=== PATIENT | female | born 1990 | race African-American/Black ===

== ENCOUNTER 2022-07-08 14:32 | Inpatient (IN) | payer BC ==
[2022-07-08 15:12] VITALS: BMI 28.3
[2022-07-08 15:26] LABS: Fetal Membranes Rupture No Membranes Rupture (No Rupture)
[2022-07-08] MEDS ORDERED: hydrALAZINE 20 MG/ML VIAL SLOW IVP PRN (15:55)
[2022-07-08] MEDS ORDERED: Ondansetron PF 4 MG/2 ML Vial IVP PRN (15:55)
[2022-07-08] MEDS ORDERED: Acetaminophen 500 MG TAB PO PRN (15:55)
[2022-07-08] MEDS ORDERED: Promethazine HCl 25 MG/ML VIAL IM PRN (15:55)
[2022-07-08] MEDS ORDERED: NS w/ Oxytocin 30 units 500 ML IV SCH (16:00)
[2022-07-08 16:09] LABS: Bilirubin Neg (Negative); Blood, Urine Negative (Negative); Clarity Clear (Clear); Glucose, Urine (Dipstick) Normal (Negative); Ketone, Urine Negative (Negative); Leukocyte Negative (Negative); Nitrite Negative (Negative); Protein, Urine (Dipstick) Negative (Neg-Trace); Specific Gravity, Urine 1.015 (1.005-1.030); Urobilinogen Normal mg/dL (Less than 2)
[2022-07-08 16:16] LABS: Amphetamine Not Detected (NotDetected); Barbiturates Screen Not Detected (NotDetected); Benzodiazepine Screen Not Detected (NotDetected); Cocaine Metabolite Screen Not Detected (NotDetected); Methadone Not Detected (NotDetected); Methamphetamine Not Detected (NotDetected); Opiate Screen Not Detected (NotDetected); Oxycodone Screen Not Detected (NotDetected); Phencyclidine (PCP) Not Detected (NotDetected); THC/Cannabinoid Screen Not Detected (NotDetected); Tricyclic Screen Not Detected (NotDetected)
[2022-07-08 16:17] LABS: Bacteria/HPF None Seen HPF (None Seen); CAUTI Indications for Culture Pregnancy; RBC/HPF None Seen HPF (0-3); WBC/HPF 0-3 HPF (0-3)
[2022-07-08 16:18] LABS: Urine Culture Reflex Yes Yes
[2022-07-08 16:27] LABS: Hemoglobin 10.5 g/dL (12.0-15.5); Mean Corpuscular Hemoglobin 24.5 pg (27.0-33.0); RBC Distribution Width 15.7 % (11.5-14.5); Red Blood Cell (RBC) Count 4.29 10x6/uL (3.90-5.03); White Blood Cell (WBC) Count 6.7 10x3/uL (3.5-10.5)
[2022-07-08 16:31] LABS: ALT (SGPT) 6 U/L (8-55); AST (SGOT) 14 U/L (5-34); Albumin 3.4 g/dL (3.5-5.0); Alkaline Phosphatase 96 U/L (40-110); Anion Gap 15 mmol/L (10-20); BUN (Urea Nitrogen) 13 mg/dL (7.0-18.7); Bilirubin, Total 0.2 mg/dL (0.2-1.2); Calc. Creatinine Clearance 96 mL/min (70-130); Calcium 8.8 mg/dL (7.8-10.44); Carbon Dioxide 21 mmol/L (22-29); Chloride 106 mmol/L (98-107); Estimated GFR 90; Glucose 90 mg/dL (70-105); Potassium 4.6 mmol/L (3.5-5.1); Protein, Total 6.4 g/dL (6.0-8.3); Sodium 137 mmol/L (136-145)
[2022-07-08 16:49] LABS: Syphilis Antibody Nonreactive (Nonreactive); Syphilis Antibody Index 0.05 S/CO (<1.00 Non-Reactive)
[2022-07-08 16:52] LABS: HBSAg Index 0.17 S/CO (0-0.99); HIV (1/2) Antibody/Antigen Non-Reactive (NonReactive); HIV 1/2 INDEX 0.11 S/CO (<1.00); Hep B Surf Ag Non-Reactive S/CO (NonReactive)
[2022-07-08 17:03] LABS: MDiff Complete? YES; Manual Diff?? YES; Platelet Count 195 10x3/uL (130-400)
[2022-07-08 17:06] LABS: Band 1 % (5-11); Eosinophils 1 % (0-10); Lymphocytes 25 % (21-51); Monocytes 7 % (0-10); Neutrophil 66 % (42-75)
[2022-07-08 17:07] LABS: Platelet Morphology Comment Appears Adequate
[2022-07-08 17:08] LABS: Anisocytosis SLIGHT = 6-15 cells (100X) (0-5/hpf); Elliptocytes SLIGHT = 2-5 cells (100X) (0-1/hpf); Hypochromia SLIGHT = 6-15 cells (100X) (0-5/hpf); Macrocytosis SLIGHT = 6-15 cells (100X) (0-5/hpf); Microcytosis SLIGHT = 6-15 cells (100X) (0-5/hpf); Polychromasia SLIGHT = 2-3 cells (100X) (0-2/hpf); Schistocytes SLIGHT = 2-5 cells (100X) (0-1/hpf); Tear Drops SLIGHT = 2-5 cells (100X) (0-1/hpf)
[2022-07-08] MEDS ORDERED: Famotidine/PF 20 mg/2ml Vial SLOW IVP PRN (17:49)
[2022-07-08] MEDS ORDERED: Bicitra 30 ML UDCUP PO PRN (17:49)
[2022-07-08] MEDS ORDERED: Azithromycin 500 MG in Sodium Chloride 0.9% 250 ML 250 ML IVPB SCH (18:00)
[2022-07-08] MEDS ORDERED: CEFAZOLIN 2 GM in Sodium Chloride 0.9% 100 ML IVPB SCH (18:00)
[2022-07-08 19:21] LABS: HBSAg Index 0.15 S/CO (0-0.99); Hep B Surf Ag Non-Reactive S/CO (NonReactive)
[2022-07-08 19:32] LABS: SARS-CoV-2 NAA Rapid Test Not Detected (NotDetected)
[2022-07-08] MEDS ORDERED: Morphine PF 10 MG/10 ML VIAL ONE (22:28)
[2022-07-08] MEDS ORDERED: Ondansetron PF 4 MG/2 ML Vial ONE (22:29)
[2022-07-08] MEDS ORDERED: Dexamethasone 4 mg/ml Vial ONE (22:29)
[2022-07-08] MEDS ORDERED: PHENYLEPHRINE-NS 100 MCG/ML 10 ML SYRINGE ONE (22:29)
[2022-07-08] MEDS ORDERED: Phenylephrine 40 MG/NS 250 ML 250 ML ONE (22:31)
[2022-07-08] MEDS ORDERED: Ketorolac Tromethamine 30 MG/ML VIAL ONE (22:31)
[2022-07-08 23:36] LABS: pH (Cord, venous) 7.301 (7.250-7.350)
[2022-07-09] MEDS ORDERED: Bisacodyl 10 MG SUPP PR PRN (00:20)
[2022-07-09] MEDS ORDERED: diphenhydrAMINE 25 MG CAP PO PRN (00:20)
[2022-07-09] MEDS ORDERED: Zolpidem Tartrate 5 MG TAB PO PRN ×2 (00:20→16:00)
[2022-07-09] MEDS ORDERED: Methylergonovine 0.2 MG/ML VIAL IM PRN (00:20)
[2022-07-09] MEDS ORDERED: Misoprostol 200 MCG TAB PR PRN (00:20)
[2022-07-09] MEDS ORDERED: hydrALAZINE 20 MG/ML VIAL SLOW IVP PRN (00:20)
[2022-07-09] MEDS ORDERED: Ondansetron PF 4 MG/2 ML Vial IVP PRN ×2 (00:20→03:49)
[2022-07-09] MEDS ORDERED: HYDROcodone/Acetaminophen 5/325 mg Tablet PO PRN ×2 (00:20→16:00)
[2022-07-09] MEDS ORDERED: Simethicone Chewable 80 MG TAB PO PRN (00:20)
[2022-07-09] MEDS ORDERED: Boostrix 0.5 ML (Tdap) VIAL (>/=7 yrs of age) IM ONE (00:20)
[2022-07-09] MEDS ORDERED: NS w/ Oxytocin 30 units 500 ML IV SCH (00:30)
[2022-07-09] MEDS ORDERED: Naloxone HCl 0.4 mg/ml Vial IVP PRN ×2 (03:49)
[2022-07-09] MEDS ORDERED: Ketorolac Tromethamine 30 MG/ML VIAL IVP PRN (03:49)
[2022-07-09] MEDS ORDERED: Promethazine HCl 25 MG/ML VIAL IM PRN (03:49)
[2022-07-09] MEDS ORDERED: diphenhydrAMINE 50 MG/ML VIAL IVP PRN (03:49)
[2022-07-09] MEDS ORDERED: Promethazine HCl 25 MG SUPP PR PRN (03:49)
[2022-07-09] MEDS ORDERED: Naloxone HCl 0.4 mg/ml Vial IV PRN (03:49)
[2022-07-09] MEDS ORDERED: Moisturizing Cream (Eucerin) 113 GM JAR TOP PRN (03:49)
[2022-07-09] MEDS ORDERED: Communication Order-Pharmacy FS SCH (04:00)
[2022-07-09] MEDS ORDERED: Ibuprofen 800 MG TAB PO SCH (06:00)
[2022-07-09 07:06] LABS: Hemoglobin 9.2 g/dL (12.0-15.5)
[2022-07-09] MEDS: Prenatal Vitamin 1 TAB PO SCH (08:42)
[2022-07-09] MEDS: Ferrous Sulfate 325 MG TAB PO SCH ×2 (08:42→20:17)
[2022-07-09] MEDS: Docusate 100 MG CAP PO SCH ×2 (08:42→20:17)
[2022-07-09] MEDS: Lactated Ringer's 1,000 ML IV SCH ×3 (08:42→20:13)
[2022-07-10] MEDS: Lactated Ringer's 1,000 ML IV SCH ×2 (05:17→16:56)
[2022-07-10] MEDS: Ibuprofen 800 MG TAB PO SCH ×2 (05:18→13:24)
[2022-07-10 05:19] LABS: Hemoglobin 8.2 g/dL (12.0-15.5); Mean Corpuscular HGB CONC 31.2 g/dL (32.0-36.0); Mean Corpuscular Hemoglobin 24.7 pg (27.0-33.0); Mean Corpuscular Volume 79.2 fl (81.6-98.3); Platelet Count 158 10x3/uL (150-450); RBC Distribution Width 15.8 % (11.5-14.5); Red Blood Cell (RBC) Count 3.32 10x6/uL (3.90-5.03)
[2022-07-10] MEDS: Docusate 100 MG CAP PO SCH (08:36)
[2022-07-10] MEDS: Ferrous Sulfate 325 MG TAB PO SCH (08:36)
[2022-07-10] MEDS: Prenatal Vitamin 1 TAB PO SCH (08:59)
[2022-07-10 12:37] VITALS: BP 116/57; TEMP 98.5
== END 2022-07-10 17:30 | disposition home or self-care (01) | DRG 787 ==
LOC: CSHLD/OP 14:32 → CSHLD 18:19 → CSHPP 07-09 02:25
PROVIDERS: ADMIT Obstetrics & Gynecology; ATTEND Obstetrics & Gynecology
PROC: 10D00Z1 Extraction of Products of Conception, Low, Open Approach (ICD-10-PCS; principal; 2022-07-09)
DX: O34.211 Maternal care for low transverse scar from previous cesarean delivery (principal); D62 Acute posthemorrhagic anemia; O69.1XX0 Labor and delivery complicated by cord around neck, with compression, not applicable or unspecified; O99.62 Diseases of the digestive system complicating childbirth; K66.0 Peritoneal adhesions (postprocedural) (postinfection); Z3A.40 40 weeks gestation of pregnancy; Z37.0 Single live birth; O42.02 Full-term premature rupture of membranes, onset of labor within 24 hours of rupture; Z20.822 Contact with and (suspected) exposure to COVID-19; O36.5930 Maternal care for other known or suspected poor fetal growth, third trimester, not applicable or unspecified; O32.8XX0 Maternal care for other malpresentation of fetus, not applicable or unspecified; E66.9 Obesity, unspecified; O99.214 Obesity complicating childbirth; O90.81 Anemia of the puerperium
CPT/HCPCS: 36415; 51702; 76815; 76819; 80053; 80306; 81001; 82805; 84112; 85014; 85018; 85025; 85027; 86762; 86780; 86850; 86900; 86901; 87086; 87340; 87389; 88307; 99285; J0456; J1100; J1885; J2274; J2405; J3490; J7050; J7120; S0028; U0002